=== PATIENT | male | born 1955 | race Caucasian/White ===

== ENCOUNTER 2016-08-18 20:06 | Emergency (ER) | payer OTHER ==
[~2016-08-18] VITALS: Ht 172.7 cm; Wt 86.0 kg
[~2016-08-18 20:06] MED LIST: LOSA50TA6 PO
[2016-08-18 20:42] VITALS: Ht 172.7 cm; Wt 86.0 kg
[2016-08-18] MEDS ORDERED: SOD CHLORIDE 0.9% 500 ML IV STA (21:17)
[2016-08-18] MEDS ORDERED: BENZ1LOZ52 MM (21:19)
[2016-08-18] MEDS ORDERED: DEXAMETHASONE 10 MG/ML 1 ML INJ IV ONE (21:30)
[2016-08-18 21:45] LABS: ADD SCAN DIFF NO
[2016-08-18 21:58] LABS: PROTIME 13.2 Sec (12.2-14.2)
[2016-08-18 21:59] LABS: PARTIAL THROMBOPLASTIN TIME 31.2 Sec (25.0-35.0)
[2016-08-18 22:15] LABS: BASOPHIL # 0.1 10^3/ul (0.0-0.1); BASOPHILS % 0.5 % (0.0-2.0); EOSINOPHILS # 0.4 10^3/ul (0.0-0.5); EOSINOPHILS % 3.6 % (0.0-7.0); HEMATOCRIT 44.9 % (42.0-52.0); HEMOGLOBIN 14.5 g/dl (14.0-18.0); LYMPHOCYTES # 2.1 10^3/ul (0.8-2.9); LYMPHOCYTES % 21.5 % (15.0-51.0); MEAN CORPUSCULAR HEMOGLOBIN 30.1 pg (29.0-33.0); MEAN CORPUSCULAR HGB CONC 32.3 g/dl (32.0-37.0); MEAN CORPUSCULAR VOLUME 93.3 fl (82.0-101.0); MEAN PLATELET VOLUME 11.5 fl (7.4-10.4); MONOCYTE # 1.2 10^3/ul (0.3-0.9); MONOCYTES % 12.5 % (0.0-11.0); NEUTROPHIL # 6.1 10^3/ul (1.6-7.5); NEUTROPHILS % 61.6 % (39.0-77.0); PLATELET COUNT 253 10^3/UL (140-415); RED BLOOD COUNT 4.81 10^6/ul (4.70-6.10); RED CELL DISTRIBUTION WIDTH 12.2 % (11.5-14.5); WHITE BLOOD COUNT 9.8 10^3/ul (4.8-10.8)
[2016-08-18 22:33] LABS: ANION GAP 13 (8-16); BLOOD UREA NITROGEN 15 mg/dl (7-20); CALCIUM 9.5 mg/dl (8.4-10.2); CARBON DIOXIDE 23 mmol/L (21-31); CHLORIDE 107 mmol/L (97-110); CREATININE 0.86 mg/dl (0.61-1.24); GLUCOSE 107 mg/dl (70-220); POTASSIUM 4.2 mmol/L (3.5-5.1); SODIUM 139 mmol/L (135-144)
[2016-08-18 22:46] LABS: TROPONIN-I < 0.012 ng/ml (0.00-0.12)
--- NOTE | 2016-08-18 23:01 | RADRPT ---
PROCEDURE: Portable chest x-ray. CLINICAL INDICATION: Chest pain. TECHNIQUE: Portable AP view of the chest. COMPARISON: 09/23/2015. FINDINGS: No pulmonary edema or conolidation is identified. The cardiac silhouette is magnified. There are ao rtic calcifications. No pleural effusion is seen. There is no pneumothorax. IMPRESSION: 1. No evidence of acute cardiopulmonary disease. 2. Aortic atherosclerosis. RPTAT: HTAR .Andrey Fuentes MD, MD Date Time Electronically viewed and signed by .Andrey Fuentes MD, on 08/18/2016 23:01 .R/
[2016-08-18] MEDS ORDERED: RACEPINEPHRINE 2.25%(NEB) 0.5 ML AMP HHN ONE (23:30)
[2016-08-19] MEDS ORDERED: PRED20TA PO (00:04)
[2016-08-19] MEDS ORDERED: EPIN0.3P4 INJ (00:04)
--- NOTE | 2016-08-19 00:04 | ERD ---
ER Documentation Chief Complaint Date/Time DATE: 08/19/16 TIME: 00:01 Chief Complaint shortness of breath," my throat is closing" HPI This is a 61-year-old male presents to the emergency room for evaluation of shortness of breath, and a feeling that his throat is closing. This patient denies any allergies. He states his symptoms have been present for 72 hours in duration. He denies any worsening symptoms and difficulty swallowing. ROS All systems reviewed and are negative except as per history of present illness. Medications Home Meds Reported Medications Benzocaine/Menthol* (Cepacol* Sore Throat Lozenges) 1 Each Lozenge, 1 EACH MM q2h Y for SORE THROAT, LOZENGE 08/18/16 Losartan Potassium* (Losartan Potassium*) 50 Mg Tablet, 50 MG PO DAILY, TAB 09/23/15 Allergies Allergies: Coded Allergies: No Known Allergy (Unverified , 08/18/16) PMhx/Soc History of Surgery: No Anesthesia Reaction: No Hx Neurological Disorder: No Hx Respiratory Disorders: No Hx Cardiac Disorders: Yes (HTN) Hx Psychiatric Problems: No Hx Miscellaneous Medical Probl: No Hx Alcohol Use: No Hx Substance Use: No Hx Tobacco Use: No Physical Exam Vitals Vital Signs Date Time Temp Pulse Resp B/P Pulse Ox O2 Delivery O2 Flow Rate FiO2 08/18/16 23:36 96 2.0 08/18/16 23:36 77 18 97 Nasal Cannula 2.0 08/18/16 22:49 83 16 174/103 99 Nasal Cannula 3.0 08/18/16 21:32 Nasal Cannula 3 08/18/16 21:09 Nasal Cannula 3.0 08/18/16 20:42 98.3 95 20 238/111 99 Physical Exam INITIAL VITAL SIGNS: Reviewed by me GENERAL: The patient is well developed and appropriate for usual state of health in no apparent distress HEENT: Uvular edema, no pharyngeal edema, patent oropharynx pupils equal, round , and reactive to light. EOMI. There is no scleral icterus. NECK: C-spine is soft and supple, there is no meningismus. There is no cervical lymphadenopathy. LUNGS: Clear to auscultation bilaterally. There are no rales, wheezes or rhonchi. HEART: Regular rate and rhythm, no murmurs, clicks, rubs or gallops. ABDOMEN: Soft, non-tender, non-distended. There are bowel sounds in all four quadrants. No rebound or guarding. EXTREMITIES: There is no peripheral cyanosis or edema. No focal swelling or erythema. NEUROLOGICAL: The patient moves all four extremities with 5/5 strength. Cranial nerves II - XII are intact. Normal gait. Alert and oriented SKIN: There is no apparent rash or petechiae. HEME/LYMPHATIC: There is no evidence of excessive bruising or lymphedema. PSYCHIATRIC: The patient does not appear anxious or depressed. Result Diagram: 08/18/16210908/18/162109 Results 24 hrs Laboratory Tests Test 08/18/16 21:10 White Blood Count 9.810^3/ul Red Blood Count 4.8110^6/ul Hemoglobin 14.5g/dl Hematocrit 44.9% Mean Corpuscular Volume 93.3fl Mean Corpuscular Hemoglobin 30.1pg Mean Corpuscular Hemoglobin Concent 32.3g/dl Red Cell Distribution Width 12.2% Platelet Count 96063^3/UL Mean Platelet Volume 11.5fl Neutrophils % 61.6% Lymphocytes % 21.5% Monocytes % 12.5% Eosinophils % 3.6% Basophils % 0.5% Nucleated Red Blood Cells % 0.0/100WBC Neutrophils # 6.110^3/ul Lymphocytes # 2.110^3/ul Monocytes # 1.210^3/ul Eosinophils # 0.410^3/ul Basophils # 0.110^3/ul Nucleated Red Blood Cells # 0.010^3/ul Prothrombin Time 13.2Sec Prothrombin Time Ratio 1.0 INR International Normalized Ratio 1.00 Activated Partial Thromboplast Time 31.2Sec Sodium Level 139mmol/L Potassium Level 4.2mmol/L Chloride Level 107mmol/L Carbon Dioxide Level 23mmol/L Anion Gap 13 Blood Urea Nitrogen 15mg/dl Creatinine 0.86mg/dl Glucose Level 107mg/dl Calcium Level 9.5mg/dl Troponin I < 0.012ng/ml Current Medications Medications (Trade) Dose Ordered Sig/Karolina Route PRN Reason Start Time Stop Time Status Last Admin Dose Admin Sodium Chloride (NS) 500 ml @ 500 mls/hr Q1H STAT IV 08/18/16 21:17 08/18/16 22:16 DC 08/18/16 21:30 Dexamethasone (Decadron) 10 mg ONCE ONCE IV 08/18/16 21:30 08/18/16 21:31 DC 08/18/16 21:30 Epinephrine (Racepinephrine 2.25% (Neb)) 0.5 ml ONCE ONCE HHN 08/18/16 23:30 08/18/16 23:31 DC 08/18/16 23:32 Procedures/MDM EKG: Rate/Rhythm: [Normal Sinus Rhythm] QRS, ST, T-waves: [No changes consistent w/ acute ischemia] Impression: [No evidence of ischemia or arrhythmia] Chest X-ray 1V Interpreted by me: Soft Tissue: No acute abnormalities Bones: No acute abnormalities Mediastinum/Cardiac Silhouette/Lungs: [No acute abnormalities] This 61-year-old male presents to the ER for evaluation of swollen throat. When I evaluated him this patient did have some mild edema of his uvula. This patient was in no respiratory distress, not posturing, tolerating secretions. His oxygen is 100%. This patient had basic lab work drawn which was negative, and normal. Chest x-ray is clear. The patient was given Decadron for mild uvular edema. Pulmonary evaluation he stated that they felt slightly better however he did have little bit of irritation still in his throat. The patient was then given racemic epinephrine. Pulmonary evaluation the patient states he is feeling better at this time. Advised him that his feeling of his throat swelling is due to uvulitis. This could be viral in nature. No peritonsillar abscess is noted. This patient has been observed in the emergency room for 90 minutes after his original presentation with no decompensation. He will be discharged home at this time with a prescription for prednisone, and epinephrine pen for use in case of emergent airway obstruction. Departure Diagnosis: Primary Impression: Uvulitis Additional Impression: Shortness of breath Condition: Stable TIFFANIEMARIA JARRETTCRISSY SMITH Aug 19, 2016 00:04
[2016-08-19 03:05] VITALS: BP 176/98; PULSE 78; RESP 18
== END 2016-08-19 03:10 | disposition home or self-care (01) ==
LOC: E/R 20:06
DX: K12.2 Cellulitis and abscess of mouth (principal); I10 Essential (primary) hypertension; R40.2142 Coma scale, eyes open, spontaneous, at arrival to emergency department; R40.2362 Coma scale, best motor response, obeys commands, at arrival to emergency department; R40.2252 Coma scale, best verbal response, oriented, at arrival to emergency department
CPT/HCPCS: 71010; 80048; 84484; 85025; 85610; 85730; 93005; 94664; J1100; J7040; Z7610; 36415; 96374